=== PATIENT | male | born 1970 | race Hispanic/Latino ===

== ENCOUNTER 2025-02-02 06:45 | Day surgery (SDC) | payer BC ==
[2025-01-31 13:32] VITALS: BMI 35.7
[2025-02-02] MEDS ORDERED: Bupivacaine HCl 0.5%/Epinephrine 1:200,000/PF 30 ml Vial ONE (06:56)
[2025-02-02] MEDS ORDERED: Indocyanine Green 25 MG/10 ML VIAL ONE (07:59)
[2025-02-02] MEDS ORDERED: Dexamethasone 20 MG/5 ML VIAL ONE (08:46)
[2025-02-02] MEDS ORDERED: Fentanyl 100 MCG/2 ML VIAL ONE ×3 (08:46→10:08)
[2025-02-02] MEDS ORDERED: Rocuronium Bromide 10 MG/ML (10ML VIAL) ONE (08:46)
[2025-02-02] MEDS ORDERED: Ondansetron PF 4 MG/2 ML Vial ONE (08:46)
[2025-02-02] MEDS ORDERED: Lidocaine 2% PF 5 ML VIAL ONE (08:46)
[2025-02-02] MEDS ORDERED: PROPOFOL 20 ML ONE (08:46)
[2025-02-02] MEDS ORDERED: CEFAZOLIN 2 GM VIAL ONE (08:51)
[2025-02-02] MEDS ORDERED: Midazolam HCl 2 mg/2 ml Vial ONE (08:52)
[2025-02-02] MEDS ORDERED: Labetalol HCl 100 MG/20 ML VIAL ONE (09:32)
[2025-02-02] MEDS ORDERED: SUGAMMADEX SODIUM 200 MG/2 ML VIAL ONE (09:55)
[2025-02-02] MEDS ORDERED: Ketorolac Tromethamine 30 MG (1 mL) VIAL ONE (09:55)
[2025-02-02] MEDS ORDERED: HYDROcodone/Acetaminophen 5/325 mg Tablet ONE (11:35)
== END 2025-02-02 12:05 | disposition home or self-care (01) ==
LOC: CSHSDC 06:45
PROVIDERS: ATTEND Surgery
PROC: 0FT44ZZ Resection of Gallbladder, Percutaneous Endoscopic Approach (ICD-10-PCS; principal; 2025-02-02)
DX: K80.10 Calculus of gallbladder with chronic cholecystitis without obstruction (principal); K76.0 Fatty (change of) liver, not elsewhere classified; K74.60 Unspecified cirrhosis of liver; E10.43 Type 1 diabetes mellitus with diabetic autonomic (poly)neuropathy; K31.84 Gastroparesis; E10.65 Type 1 diabetes mellitus with hyperglycemia; E78.5 Hyperlipidemia, unspecified; Z87.891 Personal history of nicotine dependence; Z79.4 Long term (current) use of insulin; Z79.84 Long term (current) use of oral hypoglycemic drugs; Z79.2 Long term (current) use of antibiotics; Z79.899 Other long term (current) drug therapy
CPT/HCPCS: 36416; 88304; C1713; C1889; J1100; J1885; J2250; J2405; J2704; J3010; S2900